=== PATIENT | male | born 1945 | race African-American/Black ===

== ENCOUNTER 2017-01-08 09:00 | Emergency (ER) | payer MEDICARE, OTHER ==
[~2017-01-08 09:00] MED LIST: ASAB PO; BLOOD PRESSURE; BYSTOLIC10 MG PO; HYDROCHLOROT25 MG PO; LIPITOR40 PO; LOP100 PO; LOP25 PO; MOBIC15 MG PO; NEUR100 PO; NORV10 PO; OXYCOD PO; PLAVIX PO; TRAZ50 PO; VENTOLIN HFA INH; ZOCOR20 PO; ZOL100 PO; [UNRECOGNIZED DRUG - REMARK]
[2017-01-08 09:22] LABS: BASOPHILS 0.2 %; BASOPHILS ABSOLUTE 0.02 10/3/uL (0.0-0.16); EOSINOPHILS 1.8 %; EOSINOPHILS ABSOLUTE 0.18 10/3/uL (0.0-0.53); HEMATOCRIT 39.9 % (40.0-51.0); HEMOGLOBIN 13.5 g/dL (13.6-17.8); IMMATURE GRANULOCYTES 0.4 %; IMMATURE GRANULOCYTES ABSOLUTE 0.04 10/3/uL (0.0-0.11); LYMPHOCYTES 38.2 %; LYMPHOCYTES ABSOLUTE 3.72 10/3/uL (0.67-4.30); MEAN CORPUS HGB CONC 33.8 g/dL (32.0-36.0); MEAN CORPUSCULAR HEMOGLOB 27.3 pg (26.0-34.0); MEAN CORPUSCULAR VOLUME 80.8 fL (80-100); MEAN PLATELET VOLUME 10.5 fL (9.2-13.0); MONOCYTES 8.3 %; MONOCYTES ABSOLUTE 0.81 10/3/uL (0.21-1.20); NEUTROPHILS 51.1 %; NEUTROPHILS ABSOLUTE 4.96 10/3/uL (2.02-8.40); PLATELET COUNT 205 10/3/uL (150-400); RBC DISTRIBUTION WIDTH 16.2 % (12.0-16.0); RED CELL COUNT 4.94 10/6/uL (4.7-6.1)
[2017-01-08 09:23] LABS: ER CBC TAT 0 Hrs 07 Mins; WHITE BLOOD CELLS 9.7 10/3/uL (4.5-10.5)
[2017-01-08 09:24] LABS: MANUAL DIFF NO %
[2017-01-08 09:43] LABS: A/G RATIO 0.9 (0.7-1.9); ALBUMIN 3.8 G/DL (3.5-5.0); ALKALINE PHOSPHATASE 110 U/L (45-117); CALCIUM, SERUM 9.2 MG/DL (8.5-10.4); CHLORIDE, SERUM 104 MMOL/L (96-112); GLOBULIN 4.1 G/DL (2.5-4.1); POTASSIUM, SERUM 4.1 MMOL/L (3.5-5.3); SGOT(AST) 36 U/L (5-40); SGPT(ALT) 27 U/L (5-65); SODIUM, SERUM 140 MMOL/L (135-148); TOTAL PROTEIN 7.9 G/DL (6.0-8.5)
[2017-01-08 09:45] LABS: BUN (BLOOD UREA NITROGEN) 29 MG/DL (6-23); CO2 (CARBON DIOXIDE) 28 MMOL/L (24-34); CREATININE 1.98 MG/DL (0.70-1.30); GFR AFRICAN AMERICAN 39 ML/MIN (>=60); GFR NON AFRICAN AMERICAN 33 ML/MIN (>=60); GLUCOSE, SERUM 87 MG/DL (60-99); INTERNATIONAL NORMAL RATI 1.1 UNITS (-); PROTIME (NOT ORD) 13.9 SEC (12.0-14.5)
[2017-01-08 09:48] LABS: TROPONIN I 0.23 NG/ML (<0.05)
== END 2017-01-08 10:46 | disposition home or self-care (01) ==
LOC: ER 09:00
PROVIDERS: Emergency Medicine
DX: M25.511 Pain in right shoulder (principal); R07.89 Other chest pain; R79.89 Other specified abnormal findings of blood chemistry; I10 Essential (primary) hypertension; I25.2 Old myocardial infarction; J44.9 Chronic obstructive pulmonary disease, unspecified; Z85.118 Personal history of other malignant neoplasm of bronchus and lung; Z88.6 Allergy status to analgesic agent; Z79.899 Other long term (current) drug therapy
CPT/HCPCS: 71010; 80053; 83880; 84484; 85025; 85610; 93005; 96374; 99285; A9270-GY; J1885

== ENCOUNTER 2017-03-13 23:07 | Inpatient (IN) | payer MEDICARE, OTHER ==
--- NOTE | ~2017-03-13 | CN ---
Consultation Report [facility] [address] [place]. [address] NAME: ALYX CALHOUN : 49 STATUS : ADM IN PAT#: [id number] AGE: 71 ADM/REG DATE : 03/14/17 MR#: [id number] REPORT SERV DATE: 03/15/17 DICTATED BY: DATE: REPORT STATUS : Draft TRANSCRIBED BY: MODL DATE: 03/15/17 CONSULTATION DATE OF CONSULTATION: REASON FOR CONSULTATION: CKD. HISTORY OF PRESENT ILLNESS: Mr. Calhoun is a very pleasant 71-year-old black male with a history of CKD. He has solitary kidney. He states it was removed years back and it was atrophied. He is unclear of the details of what happened to the kidney. Most recently, he has had a diagnosis of lung cancer, has underwent lobectomy. He had a heart catheterization in December, had nonobstructive coronary disease. He presented back to the hospital with shortness of breath, had evaluation with a CTA of the chest, but was negative for any PE with positive for emphysematous changes. He has elevated troponin and there are plans for possible heart catheterization tomorrow. Creatinine is 1.67, it looks as though his baseline creatinine is anywhere from 1.4 to 1.6, and we have been asked to see him in consultation. He denies any dysuria or hematuria. He has had a decrease in urine output since yesterday, but he did have a good diuresis yesterday with Lasix, given x2 doses, and his shortness of breath is significantly improved. No chest pain, tightness, or pressure. PAST MEDICAL HISTORY: Recent heart catheterization in December with nonobstructive disease, hyperlipidemia, nonobstructive coronary artery disease, lung cancer with lobectomy, hypertension, COPD. He has also been recently placed on medicine for memory. SOCIAL HISTORY: He is . Lives with his . History of tobacco use, none at present. No alcohol or illicit drug use. FAMILY MEDICAL HISTORY: Negative for any kidney disease. ALLERGIES: LISINOPRIL, GABAPENTIN. MEDICATIONS: At the time of consultation, Norvasc, aspirin, [place], Lopressor, potassium, and Zocor. He is also on heparin drip. REVIEW OF SYSTEMS: 12-point review of systems obtained and negative with the exception that in HPI. PHYSICAL EXAMINATION: VITAL SIGNS: Temp 98.9, blood pressure 130/92, pulse 64, respiratory rate 16, O2 saturation is 98% on 2 L. GENERAL: This is a pleasant, cooperative, black male. He is awake, alert, oriented x3. No acute distress. Answers questions appropriately. HEENT: Normocephalic, atraumatic. Conjunctivae clear. Sclerae anicteric. Oral mucosa moist. Consultation Report [facility] [address] [place]. [address] NAME: ALYX CALHOUN : 49 STATUS : ADM IN PAT#: [id number] AGE: 71 ADM/REG DATE : 03/14/17 MR#: [id number] REPORT SERV DATE: 03/15/17 DICTATED BY: DATE: REPORT STATUS : Draft TRANSCRIBED BY: MODArlen DATE: 03/15/17 NECK: Supple. Carotids are brisk. Neck veins flat. No lymphadenopathy. LUNGS: Respirations even and unlabored. Breath sounds decreased to the left. HEART: Rate is regular. No murmur, rub, or gallop. ABDOMEN: Soft, nontender. Bowel sounds active. No masses or hepatosplenomegaly. No bruits. No CVA tenderness. BACK: Within normal limits. EXTREMITIES: No edema, cyanosis, or clubbing. SKIN: Warm, dry, and intact. No unusual rash or skin lesions. NEURO: No focal deficits. Mood and affect, pleasant and appropriate. PERTINENT LABS AND X-RAYS: CTA of the chest with emphysematous changes only and small slightly spiculated nodule, right upper lung. Sodium 141, potassium 3.9, chloride 108, CO2 of 26, BUN of 18, creatinine of 1.67, glucose 122, albumin of 3.2. LFTs unremarkable. Troponin 0.66. WBCs 8.2, H and H 13 and 40, platelets 197,000. IMPRESSION: 1. Chronic kidney disease stage 3, creatinine looks to be at baseline. He does have decreased urine output today, but got diuresed yesterday. 2. Shortness of breath with elevated troponin, negative heart catheterization in December for obstructive disease. 3. Hypertension. 4. Solitary kidney. 5. Chronic obstructive pulmonary disease with history of tobacco use. 6. Stage IV lung cancer, adenocarcinoma with left lobectomy. PLAN: We will check urine studies. Follow I's and O's and labs. We will order some prehydration if catheterization is planned for tomorrow. If creatinine is higher, would hold off on catheterization as he just had contrast yesterday. We will follow along with you. Thank you for the consultation. CARLOS ALBERTO/MIGNON LISE Dueñas / [id number] CC: Tripp York M.D. Consultation Report [address] [place]. [address] NAME: ALYX CALHOUN : 49 STATUS : [facility]M [facility]#: [id number] AGE: 71 ADM/REG DATE : 03/14/17 MR#: [id number] REPORT SERV DATE: 03/15/17 DICTATED BY: DATE: REPORT STATUS : Draft TRANSCRIBED BY: MIGNON DATE: 03/15/17 Jhon Gonzalez M.D.
--- NOTE | ~2017-03-13 | CN ---
Consultation Report [facility] [address] [place] [place]. [address] NAME: ALYX CALHOUN : 49 STATUS : ADM IN PAT#: [id number] AGE: 71 ADM/REG DATE : 03/14/17 MR#: [id number] REPORT SERV DATE: 03/15/17 DICTATED BY: SANDRA SALAZAR DATE: 03/14/17 REPORT STATUS : Draft TRANSCRIBED BY: MODL DATE: 03/14/17 DATE OF CONSULTATION: 03/14/2017 REASON FOR CONSULTATION: Shortness of breath evaluation. The history was obtained from the patient, , nursing staff, review of medical records on [employer] and [employer]. HISTORY OF PRESENT ILLNESS: Mr. Calhoun was triaged in the emergency room on 03/13/2017 at 2307 hours, complaining of shortness of breath. Admission vital signs, blood pressure 215/101, temperature 97.7, pulse 96, respirations 22, O2 saturation 94% on room air. After evaluation in the emergency room, he was found to have an elevated troponin and BNP. ER diagnoses were: 1. Fluid overload. 2. Elevated troponin. He was admitted to Dr. York's Service. He was seen by Dr. York today with diagnoses of: 1. Acute coronary syndrome/lrx-XZ-ltuwzte elevation myocardial infarction. 2. History of lung cancer post lobectomy. 3. History of COPD. 4. History of dyslipidemia. 5. History of coronary artery disease. Plan: 1. Heparinization and aspirin. 2. Lopressor and simvastatin. 3. Consideration of re-catheterization versus nuclear medicine study. On the floor today, he has had significant blood pressure elevations up to 200/80. Last evening, he had documented blood pressure 215/101. Last week, he saw his primary care physician, Dr. Jhon Gonzalez. He was diagnosed with sinusitis. He was given some injection in his office as well as an aerosol treatment. He was started on Singulair. In addition, because of some cognitive impairment, he was started on a new medication that being Namzaric 29/07. On Monday of last week through Monday, Monday, and admission, he complained of being fatigued. He developed some wheezing on Monday. On Monday, he was more dyspneic and had a sudden episode of dyspnea. Yesterday, he had continued fatigue, shortness of breath, and also had some sweating. He did not have any chest pain. Because of the persistence of symptoms, he came to the emergency room. Consultation Report [facility] [address] [place] [place]. [address] NAME: ALYX CALHOUN : 49 STATUS : ADM IN PAT#: [id number] AGE: 71 ADM/REG DATE : 03/14/17 MR#: [id number] REPORT SERV DATE: 03/15/17 DICTATED BY: SANDRA SALAZAR DATE: 03/14/17 REPORT STATUS : Draft TRANSCRIBED BY: MIGNON DATE: 03/14/17 At this time, he complains of some lightheadedness. He is having recurrent nausea and vomiting and feeling hot. He denies any headache. His hands and arms, feet and legs are numb, but this is unchanged and reportedly is related to a known neuropathy. He feels that his right side is weak. He is seeing some spots in his visual hensley, but is not having any double vision. His thinks there may be some difference in his cognition and speech. His medical history includes: 1. Hypertension. 2. Non-flow limiting coronary artery disease per cardiac cath in December of this year. 3. CKD 3. 4. Adenocarcinoma of the lung, diagnosed in October 2012, at which time, he had a left upper lobe lobectomy and had peribronchial nodes. He received chemotherapy by Dr. Hoang. 5. Neuropathy secondary to chemotherapy. 6. Cognitive impairment, as noted. 7. Chronic shoulder pain, on chronic opioids. 8. COPD. 9. Sleep apnea, on CPAP. 10.Hyperlipidemia. 11.Depression. 12.Remote pancreatitis. 13.Known right upper lobe nodule. PAST SURGICAL HISTORY: Nephrectomy for infection in 1976, back surgery in 2006. ALLERGIES OR INTOLERANCE: Per MAR reported as gabapentin and aspirin. HOME MEDICATIONS: [place] 10/325 three times daily; Namzaric; Lopressor 25 mg twice daily; Zoloft 150 mg daily, not currently taking, but did receive a dose last night; simvastatin 20 mg daily; potassium 10 mEq twice daily. also indicates he is taking Norvasc 10 mg daily. SOCIAL HISTORY: , grown son, who is healthy. Rare alcohol use. No tobacco use. Positive marijuana use. Currently disabled as [employer] . FAMILY HISTORY: Positive for coronary artery disease. REVIEW OF SYSTEMS: Done with exam with present. Complete and negative, except as noted above. In addition, there is no history of recalled VTE stroke, seizure, GI bleeding, cirrhosis, and he is not on any immunosuppressive therapy. PHYSICAL EXAMINATION: VITAL SIGNS: Blood pressure while I was in the room included readings of 182/107, 136/73, Consultation Report [facility] [id number] [place]. [address] NAME: ALYX CALHOUN : 49 STATUS : ADM IN [facility]#: [id number] AGE: 71 ADM/REG DATE : 03/14/17 MR#: [id number] REPORT SERV DATE: 03/15/17 DICTATED BY: SANDRA SALAZAR DATE: 03/14/17 REPORT STATUS : Draft TRANSCRIBED BY: MIGNON DATE: 03/14/17 181/79; O2 saturation 100% on room air; pulse 72; earlier temperature was 97.8. GENERAL: This is a stated age-appearing male, who appears acutely and chronically ill. He was having some nausea, which was relieved with some IV Zofran. SKIN: Warm and dry. No rash or ecchymoses noted. NODES: No palpable axillary, cervical, or inguinal. HEENT: Atraumatic with symmetric facies. Lids negative. Bilateral arcus. [place] sclerae. Pupils equal, round, and reactive to light. Extraocular movements intact. No nystagmus. Hearing intact. External ears negative. Nose, negative. No nasal discharge or bleeding, and large tongue. Mucosa negative. Lips, gums, posterior pharynx, hard palate negative. NECK: Supple. No visible JVD or asymmetry. No palpable mass, goiter, or tenderness. Trachea midline. LUNGS: Clear to auscultation with diminished breath sounds on the left. No audible adventitious sounds. HEART: PMI not palpable. Regular rate and rhythm. No murmur, gallop, rub, or click. Pulses 2+ and symmetric radial, carotid, femoral, and dorsalis pedis. ABDOMEN: Not distended. Bowel sounds present. Soft to palpation. No guarding, rebound, or rigidity. Cannot feel liver, spleen, kidneys, or aortic pulsation in upper and lower extremities. No active synovitis, clubbing, or edema. NEUROLOGIC: Mental status seemingly clear. Cranial nerves II through XII normal. Motor, equal upper and lower extremity strength without identified weakness, either proximal or distal. Deep tendon reflexes 1+ brachioradialis, 2+ knee jerk. Negative Hermila. Downgoing toes. Sensory intact to touch and temperature. PSYCHIATRIC: Appropriate mood and affect. DATA: Arterial blood gases; pH 7.49, pCO2 of 29, pO2 of 91 on room air. CMP from 03/13/2017: Sodium 143, potassium 4.1, chloride 111, CO2 of 29, BUN 18, creatinine 1.52, glucose 89, calcium 9.3, total protein 7.5, albumin 3.4, globulins 4.1, total bilirubin 0.8, alkaline phosphatase 103, ALT 23, AST 27, troponins 0.8 and 0.85. BNP 1100. CBC: White count 7.8, hemoglobin 13.1, and platelets 180,000. PTT today 70.3 on heparin drip, PT 14.5. Chest x-ray from the , right medial lung base atelectasis. CTA chest done stat today, subsequent to my seeing him. No pulmonary embolus. Positive COPD. Positive spiculated right upper lobe nodule. Cardiomegaly without coronary calcification. ASSESSMENT: This is a 71-year-old male with: 1. Uncontrolled hypertension. 2. Recurrent nausea, vomiting, and dizziness with subjective right weakness. 3. Elevated troponin. 4. Elevated BNP. 5. Non-flow limiting coronary artery disease per catheterization, 12/2016. 6. Chronic kidney disease 3 with single kidney by history. 7. Adenocarcinoma of the lung in October 2012 with post left upper lobe lobectomy with positive peribronchial node with postop chemotherapy by [facility], Dr. Hoang. 8. Neuropathy secondary to chemotherapy by report. 9. Cognitive impairment with recent start Namzaric. 10.Chronic shoulder pain, on chronic opioids. Consultation Report [address] [place]. [address] NAME: ALYX CALHOUN : 49 STATUS : ADM IN [facility]#: [id number] AGE: 71 ADM/REG DATE : 03/14/17 MR#: [id number] REPORT SERV DATE: 03/15/17 DICTATED BY: SANDRA SALAZAR DATE: 03/14/17 REPORT STATUS : Draft TRANSCRIBED BY: MODL DATE: 03/14/17 11.Chronic obstructive pulmonary disease. 12.Sleep apnea, on CPAP. 13.Hyperlipidemia. 14.Depression. Off SSRI. 15.Remote pancreatitis history. 16.Right upper lobe nodule on CT today, known to oncology per report. PLAN: Reinstitute amlodipine. Discontinue Namzaric as this may have contributed to some of his symptoms last week. Check brain MRI and MRA without contrast with his neurologic symptoms and oncology history. O2 at night and p.r.n. Follow up data in a.m. Further recommendations pending above. DD/MODL Sandra Salazar M.D. / [id number] CC: Shamar Herndon M.D.
--- NOTE | ~2017-03-13 | HP ---
History And Physical [address] [place]. [address] NAME: ALYX CALHOUN : 49 STATUS : DIS IN PAT#: [id number] AGE: 71 ADM/REG DATE : 03/14/17 MR#: [id number] REPORT SERV DATE: 03/22/17 DICTATED BY: VERENICE YORK DATE: 03/14/17 REPORT STATUS : Draft TRANSCRIBED BY: MODL DATE: 03/14/17 DATE OF ADMISSION: 03/13/2017 DIAGNOSES: 1. Acute coronary syndrome/non-ST elevation myocardial infarction. 2. History of lung cancer status post lobectomy. 3. History of chronic obstructive pulmonary disease. 4. History of dyslipidemia. 5. History of coronary artery disease. PLAN: 1. Heparinization and aspirin administration. 2. Lopressor administration/simvastatin administration. 3. Consideration for re-catheterization versus nuclear medicine study. HISTORY OF PRESENT ILLNESS: Mr. Alyx Calhoun is a 71-year-old male with prior history of hypertension and dyslipidemia and prior history of COPD, who underwent catheterization in 12/2015 that demonstrated non-flow limiting coronary artery disease and normal LV systolic function. He presents at this point in time with excessive fatigue and mild shortness of breath. Of note, his EKG failed to reveal any acute ST-T wave changes. The troponin levels are 0.8. BNP is 1100. He is admitted. PAST MEDICAL HISTORY: As per above. PAST SURGICAL HISTORY: Status post knee surgery, status post penial surgery, status post lobectomy for lung cancer. MEDICATIONS: Currently not finalized. SOCIAL HISTORY: He does not smoke, drink, or use recreational drugs. FAMILY HISTORY: Noncontributory. A 10 point. REVIEW OF SYSTEMS: A 10-point review of systems is thoroughly reviewed, but noncontributory. PHYSICAL EXAMINATION: VITAL SIGNS: Blood pressure is 170 systolic. NECK: Less than 7 cm JVP. Carotids were clear. LUNGS: Clear to auscultation and percussion. CARDIAC: PMI is nondisplaced. S1, S2. EXTREMITIES: Shows no edema. IMAGING: EKG shows normal sinus rhythm and nonspecific ST-T wave changes. LABORATORY DATA: White count 7800, hemoglobin 13.1, hematocrit 39.4, platelet count 180,000. History And Physical [address] [place]. [address] NAME: ALYX CALHOUN : 49 STATUS : DIS IN PAT#: [id number] AGE: 71 ADM/REG DATE : 03/14/17 MR#: [id number] REPORT SERV DATE: 03/22/17 DICTATED BY: VERENICE YORK DATE: 03/14/17 REPORT STATUS : Draft TRANSCRIBED BY: MODL DATE: 03/14/17 Sodium 143, potassium 4.1, BUN is 18, creatinine is 1.52. IMPRESSION: This patient presented with a non-ST elevation myocardial infarction. Plan at this time is continuation of current medical interventions. We will follow him very closely. We will heparinize as well. We will plan potential heart catheterization. DARREN/MIGNON Verenice York M.D. / [id number] CC: Verenice York M.D.
--- NOTE | ~2017-03-13 | DS ---
Discharge Summary [facility] [address] [place]. [address] NAME: ALYX CALHOUN : 49 STATUS : DIS IN PAT#: [id number] AGE: 71 ADM/REG DATE : 03/14/17 MR#: [id number] REPORT SERV DATE: 03/25/17 DICTATED BY: VERENICE YORK DATE: 03/24/17 REPORT STATUS : Draft TRANSCRIBED BY: MODArlen DATE: 03/24/17 Data Collection from hospitalization DISCHARGE DIAGNOSES: 1. Elevated troponins. 2. Chronic kidney disease/acute kidney injury. 3. Dizziness-improved. 4. Hypertension. 5. Chronic obstructive pulmonary disease. 6. Nonobstructive coronary artery disease. 7. Hyperlipidemia. 8. History of lung cancer. 9. Former tobacco use. CONSULTATIONS: LISE Dueñas. Dr. Nestor Knight. PROCEDURES PERFORMED: 1. CTA of the chest, 03/14/2017. 2. MRI of the brain without contrast and MRA of the head without contrast. DISCHARGE MEDICATIONS: Proventil one nebulized inhaler every four hours as needed, Norvasc 10 mg daily, Symbicort two puffs via inhaler twice a day, Plavix 75 mg daily, Lasix 40 mg daily, Neurontin 100 mg at bedtime, [place] 10/325 one tablet three times a day as needed, Lopressor 25 mg twice a day, K-Tab 20 mEq daily, Zocor 20 mg at bedtime, Plavix 75 mg as instructed. He was instructed not to continue Namzaric or ProAir. CONDITION AT DISCHARGE: Stable. DISPOSITION: The patient was discharged home on a low-sodium diet with activities as instructed. He would follow up with me one week following discharge. HOSPITAL COURSE: This is a 71-year-old man, who has a history of hypertension and dyslipidemia and a prior history of COPD. He had undergone a cardiac catheterization in December 2015, which demonstrated jwy-fruz-kuwzsilm coronary artery disease and normal left ventricular systolic function, who presented at this point in time with excessive fatigue and mild shortness of breath. His EKG failed to reveal any acute ST-T wave changes. He was admitted to the hospital at this time for further evaluation and treatment. Upon admission, his troponin level was 0.8, BNP was 1100, and creatinine level was 1.52. He was felt to have presented with a lls-PN-ogmvgolke myocardial infarction. At this point in time, the plan was to continue current medical interventions. He would be heparinized. It was felt that he may need to undergo a potential heart catheterization. He was seen in consultation by Dr. Nestor Knight regarding shortness of breath. He had had some significant blood pressure elevations up to 200/80. He had had a documented blood pressure the previous evening of 215/101. He had seen his primary care physician the week prior to this admission. He had been diagnosed with sinusitis. He had received an injection in the office as well as aerosol treatment. He had been started on Singulair in addition because of some cognitive impairment. He was started on a new medication, which was Namzaric. His Discharge Summary [address] [address] NAME: ALYX CALHOUN : 49 STATUS : DIS IN PAT#: [id number] AGE: 71 ADM/REG DATE : 03/14/17 MR#: [id number] REPORT SERV DATE: 03/25/17 DICTATED BY: VERENICE YORK DATE: 03/24/17 REPORT STATUS : Draft TRANSCRIBED BY: MIGNON DATE: 03/24/17 troponins were 0.8 and 0.85. White count was 7.8. A CTA of the chest was performed and showed no pulmonary embolus. There is a positive spiculated right upper lobe nodule. There was cardiomegaly without coronary calcification. The patient has stage 3 chronic kidney disease with a single kidney by history. We were going to restart his amlodipine. Namzaric was discontinued as this may be contributed to some of his symptoms. MRI and MRA were going to be obtained to the brain. He would receive O2 at night and as needed. An MRI of the brain without contrast and MRA of the head without contrast was performed. The following day, he had no new complaints. He was in a normal sinus rhythm. Troponin was 0.66. He was seen by Rosaura Mckoy regarding chronic kidney disease. He did have good diuresis with Lasix. He had had a decrease in urine output since the day previously. His shortness of breath had significantly improved. He had no chest pain, tightness, or pressure. Creatinine level was 1.67. Urine studies were going to be checked. Rehydration was going to be ordered. A cardiac catheterization was planned for the following day. If his creatinine was higher, she recommended holding off on catheterization as he had just received contrast the day previously. MRI showed no acute findings. He did complain of a mild headache. He was in a normal sinus rhythm on 03/16/2017. Cardiac catheterization was going to be held. His creatinine level was 1.59. IV heparin continued. Antianginal was continued as well as anti-ischemic medication regimen. Discharge planning was performed. He had no shortness of breath or chest pain. On 03/17/2017, he had no new complaints. He was on a heparin drip. A catheterization would be performed the following week. Creatinine level was 1.46. Blood pressure control had improved. Discharge instructions were given. Due to his improved and stable condition, he was discharged home with the above-stated instructions. Information collected by: Kasey Rees I submit the above information as my discharge summary. TG/MODL Verenice York M.D. / [id number] CC: Shamar Herndon M.D. Jessica Craig, FNP
[2017-03-14 00:27] LABS: BASOPHILS 0.3 %; BASOPHILS ABSOLUTE 0.02 10/3/uL (0.0-0.16); EOSINOPHILS 1.4 %; EOSINOPHILS ABSOLUTE 0.11 10/3/uL (0.0-0.53); HEMATOCRIT 39.2 % (40.0-51.0); HEMOGLOBIN 13.1 g/dL (13.6-17.8); IMMATURE GRANULOCYTES 0.1 %; IMMATURE GRANULOCYTES ABSOLUTE 0.01 10/3/uL (0.0-0.11); LYMPHOCYTES 22.6 %; LYMPHOCYTES ABSOLUTE 1.75 10/3/uL (0.67-4.30); MANUAL DIFF NO %; MEAN CORPUS HGB CONC 33.4 g/dL (32.0-36.0); MEAN CORPUSCULAR HEMOGLOB 27.6 pg (26.0-34.0); MEAN CORPUSCULAR VOLUME 82.7 fL (80-100); MEAN PLATELET VOLUME 10.7 fL (9.2-13.0); MONOCYTES 11.7 %; MONOCYTES ABSOLUTE 0.91 10/3/uL (0.21-1.20); NEUTROPHILS 63.9 %; NEUTROPHILS ABSOLUTE 4.95 10/3/uL (2.02-8.40); PLATELET COUNT 180 10/3/uL (150-400); RBC DISTRIBUTION WIDTH 15.8 % (12.0-16.0); RED CELL COUNT 4.74 10/6/uL (4.7-6.1); WHITE BLOOD CELLS 7.8 10/3/uL (4.5-10.5)
[2017-03-14 00:43] LABS: A/G RATIO 0.8 (0.7-1.9); ALBUMIN 3.4 G/DL (3.5-5.0); ALKALINE PHOSPHATASE 103 U/L (45-117); BUN (BLOOD UREA NITROGEN) 18 MG/DL (6-23); CALCIUM, SERUM 9.3 MG/DL (8.5-10.4); CHLORIDE, SERUM 111 MMOL/L (96-112); CO2 (CARBON DIOXIDE) 29 MMOL/L (24-34); CREATININE 1.52 MG/DL (0.70-1.30); GFR AFRICAN AMERICAN 53 ML/MIN (>=60); GFR NON AFRICAN AMERICAN 46 ML/MIN (>=60); GLOBULIN 4.1 G/DL (2.5-4.1); GLUCOSE, SERUM 89 MG/DL (60-99); POTASSIUM, SERUM 4.1 MMOL/L (3.5-5.3); SGOT(AST) 27 U/L (5-40); SGPT(ALT) 23 U/L (5-65); SODIUM, SERUM 143 MMOL/L (135-148); TOTAL BILIRUBIN 0.8 MG/DL (0-1.2); TOTAL PROTEIN 7.5 G/DL (6.0-8.5)
[2017-03-14] MEDS ORDERED: LOP25 PO ×2 (02:18→13:31)
[2017-03-14] MEDS ORDERED: EFFER K PO (02:18)
[2017-03-14] MEDS ORDERED: NORCO1 TAB PO ×2 (02:20→13:31)
[2017-03-14] MEDS ORDERED: *UNABLE1 ×2 (02:22→13:31)
[2017-03-14] MEDS ORDERED: STATIN (02:23)
[2017-03-14 07:36] LABS: BE (BASE EXCESS) -1.1 MEQ/L (0 +/- 2.5); HCO3 (ACTUAL BICARBONATE) 22.2 MEQ/L (23-27); INSTRUMENT SERIAL # 8087; PCO2 (CO2 TENSION) 34 MMHG (35-45); PO2 (O2 TENSION) 69 MMHG (79-93); SAMPLE Arterial; pH 7.44 (7.37-7.43)
[2017-03-14 09:09] LABS: INTERNATIONAL NORMAL RATI 1.1 UNITS (-); PROTIME (NOT ORD) 14.5 SEC (12.0-14.5)
[2017-03-14] MEDS ORDERED: ZOCOR20 PO ×2 (09:29→13:32)
[2017-03-14] MEDS ORDERED: ZOL100 PO (09:29)
[2017-03-14] MEDS ORDERED: NAMZARIC 14 MG1 EACH PO (09:30)
[2017-03-14] MEDS ORDERED: K-TABS10 MEQ PO (13:32)
[2017-03-14] MEDS ORDERED: DONEPEZIL PO (13:43)
[2017-03-14] MEDS ORDERED: MEMANTINE PO (13:43)
[2017-03-14] MEDS ORDERED: NEUR100 PO (13:43)
[2017-03-14] MEDS ORDERED: L40 PO (13:43)
[2017-03-14] MEDS ORDERED: SYMBICORT 160/41 INH INH (13:44)
[2017-03-14] MEDS ORDERED: ALBUTEROL5 INH (13:44)
[2017-03-14] MEDS ORDERED: NORV10 PO (13:45)
[2017-03-14] MEDS ORDERED: PROAIR HFA INH (13:45)
[2017-03-14 14:22] LABS: ALLENS TEST Pos; BE (BASE EXCESS) -0.5 MEQ/L (0 +/- 2.5); CARBOXYHEMOGLOBIN 1.5 % (0-3); HCO3 (ACTUAL BICARBONATE) 21.5 MEQ/L (23-27); HEMOBLOGIN CONTENT 15.3 G/DL (14-18); INSTRUMENT SERIAL # 35151; METHEMOGLOBIN 0.5 % (0-3); O2 CONTENT 20.6 VOL% (18-24); PCO2 (CO2 TENSION) 29 MMHG (35-45); PO2 (O2 TENSION) 91 MMHG (79-93); SAMPLE Arterial; pH 7.49 (7.37-7.43)
[2017-03-15 02:22] LABS: BASOPHILS 0.1 %; BASOPHILS ABSOLUTE 0.01 10/3/uL (0.0-0.16); EOSINOPHILS 0.5 %; EOSINOPHILS ABSOLUTE 0.04 10/3/uL (0.0-0.53); HEMATOCRIT 40.1 % (40.0-51.0); HEMOGLOBIN 13.7 g/dL (13.6-17.8); IMMATURE GRANULOCYTES 0.2 %; IMMATURE GRANULOCYTES ABSOLUTE 0.02 10/3/uL (0.0-0.11); LYMPHOCYTES 29.1 %; LYMPHOCYTES ABSOLUTE 2.38 10/3/uL (0.67-4.30); MANUAL DIFF NO %; MEAN CORPUS HGB CONC 34.2 g/dL (32.0-36.0); MEAN CORPUSCULAR HEMOGLOB 27.8 pg (26.0-34.0); MEAN CORPUSCULAR VOLUME 81.5 fL (80-100); MEAN PLATELET VOLUME 10.6 fL (9.2-13.0); MONOCYTES 11.1 %; MONOCYTES ABSOLUTE 0.91 10/3/uL (0.21-1.20); NEUTROPHILS ABSOLUTE 4.81 10/3/uL (2.02-8.40); PLATELET COUNT 187 10/3/uL (150-400); RBC DISTRIBUTION WIDTH 15.6 % (12.0-16.0); RED CELL COUNT 4.92 10/6/uL (4.7-6.1); WHITE BLOOD CELLS 8.2 10/3/uL (4.5-10.5)
[2017-03-15 02:40] LABS: A/G RATIO 0.7 (0.7-1.9); ALBUMIN 3.2 G/DL (3.5-5.0); ALKALINE PHOSPHATASE 110 U/L (45-117); BUN (BLOOD UREA NITROGEN) 18 MG/DL (6-23); CALCIUM, SERUM 9.5 MG/DL (8.5-10.4); CHLORIDE, SERUM 108 MMOL/L (96-112); CO2 (CARBON DIOXIDE) 26 MMOL/L (24-34); CREATININE 1.67 MG/DL (0.70-1.30); GFR AFRICAN AMERICAN 48 ML/MIN (>=60); GFR NON AFRICAN AMERICAN 41 ML/MIN (>=60); GLOBULIN 4.3 G/DL (2.5-4.1); POTASSIUM, SERUM 3.9 MMOL/L (3.5-5.3); SGOT(AST) 28 U/L (5-40); SGPT(ALT) 21 U/L (5-65); SODIUM, SERUM 141 MMOL/L (135-148); TOTAL BILIRUBIN 0.7 MG/DL (0-1.2); TOTAL PROTEIN 7.5 G/DL (6.0-8.5)
[2017-03-15 02:44] LABS: GLUCOSE, SERUM 122 MG/DL (60-99); TROPONIN I 0.66 NG/ML (<0.05)
[2017-03-16 02:39] LABS: ASCORBIC ACID (UR NOT ORDER) NEG (NEG); BILIRUBIN, URINE NEGATIVE (NEG); KETONE, URINE NEGATIVE (NEG); LEUKOCYTE ESTERASE(NOT OR NEG (NEG); WBC (NOT ORDERED) (RFLEX) 1 (0-5)
[2017-03-16 04:07] LABS: BASOPHILS 0.5 %; BASOPHILS ABSOLUTE 0.04 10/3/uL (0.0-0.16); EOSINOPHILS 1.8 %; EOSINOPHILS ABSOLUTE 0.13 10/3/uL (0.0-0.53); HEMATOCRIT 39.5 % (40.0-51.0); HEMOGLOBIN 13.4 g/dL (13.6-17.8); IMMATURE GRANULOCYTES 0.4 %; IMMATURE GRANULOCYTES ABSOLUTE 0.03 10/3/uL (0.0-0.11); LYMPHOCYTES 35.6 %; LYMPHOCYTES ABSOLUTE 2.63 10/3/uL (0.67-4.30); MEAN CORPUS HGB CONC 33.9 g/dL (32.0-36.0); MEAN CORPUSCULAR HEMOGLOB 27.6 pg (26.0-34.0); MEAN CORPUSCULAR VOLUME 81.4 fL (80-100); MEAN PLATELET VOLUME 12.3 fL (9.2-13.0); MONOCYTES 12.2 %; NEUTROPHILS 49.5 %; NEUTROPHILS ABSOLUTE 3.65 10/3/uL (2.02-8.40); PLATELET COUNT 189 10/3/uL (150-400); RBC DISTRIBUTION WIDTH 15.5 % (12.0-16.0); RED CELL COUNT 4.85 10/6/uL (4.7-6.1); WHITE BLOOD CELLS 7.4 10/3/uL (4.5-10.5)
[2017-03-16 04:10] LABS: MANUAL DIFF NO %
[2017-03-16 04:19] LABS: ALBUMIN 2.9 G/DL (3.5-5.0); CALCIUM, SERUM 9.3 MG/DL (8.5-10.4); CHLORIDE, SERUM 107 MMOL/L (96-112); CO2 (CARBON DIOXIDE) 28 MMOL/L (24-34); CREATININE 1.59 MG/DL (0.70-1.30); GFR AFRICAN AMERICAN 51 ML/MIN (>=60); GFR NON AFRICAN AMERICAN 44 ML/MIN (>=60); PHOSPHORUS, SERUM 3.9 MG/DL (2.5-4.5); POTASSIUM, SERUM 3.8 MMOL/L (3.5-5.3); SODIUM, SERUM 143 MMOL/L (135-148)
[2017-03-16 04:21] LABS: BUN (BLOOD UREA NITROGEN) 24 MG/DL (6-23); GLUCOSE, SERUM 95 MG/DL (60-99)
[2017-03-17 05:24] LABS: BASOPHILS 0.6 %; BASOPHILS ABSOLUTE 0.04 10/3/uL (0.0-0.16); EOSINOPHILS 2.1 %; EOSINOPHILS ABSOLUTE 0.15 10/3/uL (0.0-0.53); HEMATOCRIT 39.2 % (40.0-51.0); HEMOGLOBIN 13.2 g/dL (13.6-17.8); IMMATURE GRANULOCYTES 0.4 %; IMMATURE GRANULOCYTES ABSOLUTE 0.03 10/3/uL (0.0-0.11); LYMPHOCYTES 46.8 %; MEAN CORPUS HGB CONC 33.7 g/dL (32.0-36.0); MEAN CORPUSCULAR HEMOGLOB 27.3 pg (26.0-34.0); MEAN CORPUSCULAR VOLUME 81.2 fL (80-100); MEAN PLATELET VOLUME 11.8 fL (9.2-13.0); MONOCYTES 9.8 %; MONOCYTES ABSOLUTE 0.69 10/3/uL (0.21-1.20); NEUTROPHILS 40.3 %; NEUTROPHILS ABSOLUTE 2.84 10/3/uL (2.02-8.40); PLATELET COUNT 177 10/3/uL (150-400); RBC DISTRIBUTION WIDTH 15.3 % (12.0-16.0); RED CELL COUNT 4.83 10/6/uL (4.7-6.1); WHITE BLOOD CELLS 7.1 10/3/uL (4.5-10.5)
[2017-03-17 05:25] LABS: MANUAL DIFF NO %
[2017-03-17 05:34] LABS: ALBUMIN 2.9 G/DL (3.5-5.0); BUN (BLOOD UREA NITROGEN) 23 MG/DL (6-23); CALCIUM, SERUM 9.1 MG/DL (8.5-10.4); CHLORIDE, SERUM 111 MMOL/L (96-112); CREATININE 1.46 MG/DL (0.70-1.30); GFR AFRICAN AMERICAN 56 ML/MIN (>=60); GFR NON AFRICAN AMERICAN 48 ML/MIN (>=60); GLUCOSE, SERUM 100 MG/DL (60-99); PHOSPHORUS, SERUM 3.8 MG/DL (2.5-4.5); POTASSIUM, SERUM 3.8 MMOL/L (3.5-5.3); SODIUM, SERUM 141 MMOL/L (135-148)
[2017-03-17 05:37] LABS: CO2 (CARBON DIOXIDE) 21 MMOL/L (24-34)
[2017-03-17 05:41] LABS: PARTIAL THROMBO TIME 118.9 SEC (22.5-37.2)
[2017-03-17] MEDS ORDERED: PLAVIX PO (12:06)
== END 2017-03-17 13:51 | disposition home or self-care (01) | DRG 281 ==
LOC: ER 23:07 → CDU1 23:59 → CDU2 03-14 03:28 → 6NO 03-14 10:14 → SDC/OF 03-16 11:05 → 6NO 03-16 11:12
PROVIDERS: Emergency Medicine; Internal Medicine; Internal Medicine Cardiovascular Disease; Internal Medicine Nephrology; Nurse Practitioner
DX: I21.4 Non-ST elevation (NSTEMI) myocardial infarction (principal); C34.90 Malignant neoplasm of unspecified part of unspecified bronchus or lung; N17.9 Acute kidney failure, unspecified; I47.2 Ventricular tachycardia; J44.9 Chronic obstructive pulmonary disease, unspecified; N18.3 Chronic kidney disease, stage 3 (moderate); I12.9 Hypertensive chronic kidney disease with stage 1 through stage 4 chronic kidney disease, or unspecified chronic kidney disease; I25.10 Atherosclerotic heart disease of native coronary artery without angina pectoris; E78.5 Hyperlipidemia, unspecified; T50.8X5A Adverse effect of diagnostic agents, initial encounter; R91.1 Solitary pulmonary nodule; T45.1X5A Adverse effect of antineoplastic and immunosuppressive drugs, initial encounter; G31.84 Mild cognitive impairment of uncertain or unknown etiology; M25.519 Pain in unspecified shoulder; G47.33 Obstructive sleep apnea (adult) (pediatric); G89.29 Other chronic pain; G62.0 Drug-induced polyneuropathy; Z90.5 Acquired absence of kidney; Z87.891 Personal history of nicotine dependence; Z90.2 Acquired absence of lung [part of]; Z92.21 Personal history of antineoplastic chemotherapy; Z79.1 Long term (current) use of non-steroidal anti-inflammatories (NSAID); Z88.6 Allergy status to analgesic agent; Z86.73 Personal history of transient ischemic attack (TIA), and cerebral infarction without residual deficits; Z53.9 Procedure and treatment not carried out, unspecified reason
CPT/HCPCS: 36600; 70544; 70551; 71010; 71275; 80053; 80069; 81001; 82805; 82962; 83735; 83880; 84484; 85025; 85610; 85730; 87040; 93005; 94640; 96374; 99285; A9270-GY; J0360; J2405; J2550; Q9967